=== PATIENT | female | born 1990 | race Caucasian/White ===

== ENCOUNTER 2019-02-14 07:03 | Emergency (ER) | payer BC ==
[~2019-02-14] VITALS: Ht 165.1 cm; Wt 70.3 kg
[2019-02-14 07:07] VITALS: BP 130/75
--- NOTE | 2019-02-14 07:20 | NUR ---
RING REMOVED BY WASHER ENGINEER.
--- NOTE | 2019-02-14 07:30 | NUR ---
Patient discharged to home in stable condition. Written and verbal after care instructions given. Patient verbalizes understanding of instruction.
== END 2019-02-14 07:33 | disposition home or self-care (01) ==
LOC: ER 07:06
DX: S60.453A Superficial foreign body of left middle finger, initial encounter (principal); W45.8XXA Other foreign body or object entering through skin, initial encounter; Y93.89 Activity, other specified; Y92.89 Other specified places as the place of occurrence of the external cause; Y99.8 Other external cause status